=== PATIENT | male | born 1965 | race Caucasian/White ===

== ENCOUNTER 2016-11-28 13:09 | Emergency (ER) | payer OTHER ==
[2016-11-28 14:10] LABS: PLATELET COUNT 307 x10^3mcL (130-400); RED CELL DISTRIBUTION WIDTH 12.6 % (11.5-14.5)
[2016-11-28 14:20] LABS: BASOPHIL % 3.6 % (0-2)
[2016-11-28 14:24] LABS: CALCIUM 8.9 mg/dL (8.5-10.1); CARBON DIOXIDE 29.1 mmol/L (21-32); CHLORIDE SERUM 104 mmol/L (98-107); CREATININE SERUM 0.8 mg/dL (0.7-1.3); GFR1 > 60 mL/min; GLUCOSE SERUM 109 mg/dL (74-106); POTASSIUM SERUM 3.8 mmol/L (3.5-5.1); SODIUM SERUM 140 mmol/L (136-145)
[2016-11-28 14:28] LABS: ALBUMIN 4.1 g/dL (3.4-5.0); ALKALINE PHOSPHATASE 68 U/L (46-116); ALT/SGPT 29 U/L (16-63); AST/SGOT 16 U/L (15-37); BILIRUBIN TOTAL 0.27 mg/dL (0.20-1.00); HDL CHOLESTEROL 47 mg/dL (40-60); LIPASE 142 IU/L (73-393); TOTAL PROTEIN, SERUM 7.6 g/dL (6.4-8.2)
[2016-11-28 14:31] LABS: CHOLESTEROL 304 mg/dL (<200); CHOLESTEROL/HDL RATIO 6.5; TRIGLYCERIDES 403 mg/dL (<150)
[2016-11-28 14:37] LABS: T3 TOTAL 1.17 ng/mL
[2016-11-28 14:38] LABS: FREE T4 0.84 ng/dL (0.76-1.46); T4(THYROXINE) 5.9 ug/dL (4.7-13.3)
[2016-11-28 15:27] VITALS: BP 168/95
[2016-11-28 15:27] LABS: microscopic required? YES; urine erythrocyte NEGATIVE (NEGATIVE)
== END 2016-11-28 15:27 | disposition home or self-care (01) ==
LOC: ED 13:09
PROVIDERS: Specialist
DX: I10 Essential (primary) hypertension (principal); E78.5 Hyperlipidemia, unspecified; E66.9 Obesity, unspecified
CPT/HCPCS: 83880; 84439

== ENCOUNTER 2018-06-05 23:18 | Emergency (ER) | payer OTHER ==
[~2018-06-05] VITALS: Ht 185.4 cm; Wt 110.2 kg
[2018-06-05 23:46] VITALS: Ht 185.4 cm; Wt 110.2 kg
[2018-06-06 03:15] VITALS: BP 152/86
== END 2018-06-06 03:15 | disposition home or self-care (01) ==
LOC: ED 23:18
DX: R51 Headache (principal); I10 Essential (primary) hypertension; E78.00 Pure hypercholesterolemia, unspecified; H53.8 Other visual disturbances
CPT/HCPCS: J1885

== ENCOUNTER 2018-07-07 13:50 | Emergency (ER) | payer OTHER ==
[~2018-07-07] VITALS: Ht 185.4 cm; Wt 108.4 kg
[2018-07-07 13:59] VITALS: Ht 185.4 cm; Wt 108.4 kg
[2018-07-07 14:56] LABS: BASOPHIL % 0.4 % (0-2); PLATELET COUNT 248 x10^3mcL (130-400); RED CELL DISTRIBUTION WIDTH 13.1 % (11.5-14.5)
[2018-07-07 16:03] LABS: CALCIUM 8.9 mg/dL (8.5-10.1); CHLORIDE SERUM 102 mmol/L (98-107); GFR1 > 60 mL/min; GLUCOSE SERUM 103 mg/dL (74-106); POTASSIUM SERUM 3.7 mmol/L (3.5-5.1); SODIUM SERUM 139 mmol/L (136-145)
[2018-07-07 16:07] LABS: ALKALINE PHOSPHATASE 79 U/L (46-116); ALT/SGPT 34 U/L (16-63); AST/SGOT 45 U/L (15-37); BILIRUBIN TOTAL 0.2 mg/dL (0.20-1.00); HDL CHOLESTEROL 37 mg/dL (40-60); MAGNESIUM 2.2 mg/dL (1.8-2.4); TOTAL PROTEIN, SERUM 7.9 g/dL (6.4-8.2)
[2018-07-07 16:08] LABS: CHOLESTEROL 302 mg/dL (<200)
[2018-07-07 18:56] VITALS: BP 139/90
== END 2018-07-07 18:56 | disposition home or self-care (01) ==
LOC: ED 13:50
PROVIDERS: Emergency Medicine
DX: I10 Essential (primary) hypertension (principal); E78.00 Pure hypercholesterolemia, unspecified
CPT/HCPCS: 36415; Q0092

== ENCOUNTER 2019-01-21 14:27 | Emergency (ER) | payer OTHER ==
[~2019-01-21] VITALS: Ht 185.4 cm; Wt 108.9 kg
[2019-01-21 14:29] VITALS: Ht 185.4 cm; Wt 108.9 kg
[2019-01-21 15:25] VITALS: BP 177/111
== END 2019-01-21 15:25 | disposition home or self-care (01) ==
LOC: ED 14:27
DX: M25.561 Pain in right knee (principal); I10 Essential (primary) hypertension; E11.9 Type 2 diabetes mellitus without complications; E78.00 Pure hypercholesterolemia, unspecified